=== PATIENT | male | born 1965 | race Caucasian/White ===

== ENCOUNTER 2020-03-24 22:17 | Emergency (ER) | payer SELFPAY ==
[~2020-03-24 22:17] MED LIST: Iopamidol-370 76% 500 ML 1 ML ONE
[2020-03-24] MEDS ORDERED: Boostrix 0.5 ML (Tdap) VIAL ONE (22:36)
[2020-03-24] MEDS ORDERED: Fentanyl 100 MCG/2 ML VIAL ONE (22:36)
[2020-03-24] MEDS ORDERED: Ondansetron PF 4 MG/2 ML Vial ONE (22:36)
[2020-03-24 22:45] LABS: #Eosinphils 0.2 thou/uL (0.0-0.7); #Lymphocytes 2.1 thou/uL (1.20-3.40); #Monocytes 0.4 thou/uL (0.11-0.59); #Neutrophils 1.8 thou/uL (1.40-6.50); %Lymphocytes 46.7 % (21.0-51.0); %Monocytes 8.6 % (0.0-10.0); %Neutrophils 39.8 % (42.0-75.0); Hemoglobin 13.8 g/dL (14.0-18.0); Mean Corpuscular HGB CONC 32.7 g/dL (32.0-36.0); Mean Corpuscular Hemoglobin 29.6 pg (27.0-31.0); Mean Corpuscular Volume 90.4 fL (78.0-98.0); Mean Platelet Volume 9.3 fL (7.4-10.4); Platelet Count 157 thou/uL (130-400); RBC Distribution Width 11.6 % (11.5-14.5); Red Blood Cell (RBC) Count 4.68 mill/uL (4.70-6.10); White Blood Cell (WBC) Count 4.5 thou/uL (4.8-10.8)
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
[2020-03-24] MEDS ORDERED: Bacitracin 1 PK ONE (23:05)
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
[2020-03-24 23:08] LABS: ALT (SGPT) 34 U/L (8-55); AST (SGOT) 32 U/L (5-34); Albumin 3.6 g/dL (3.5-5.0); Alkaline Phosphatase 75 U/L (40-110); Anion Gap 13 mmol/L (10-20); BUN (Urea Nitrogen) 15 mg/dL (8.4-25.7); Bilirubin, Total 0.4 mg/dL (0.2-1.2); Calc. Creatinine Clearance 0 mL/min (70-130); Carbon Dioxide 25 mmol/L (22-29); Chloride 104 mmol/L (98-107); Globulin 3.2 g/dL (2.4-3.5); Glucose 104 mg/dL (70-105); Lipase 41 U/L (8-78); Potassium 3.9 mmol/L (3.5-5.1); Protein, Total 6.8 g/dL (6.0-8.3); Sodium 138 mmol/L (136-145)
[2020-03-25] MEDS ORDERED: Bacitracin 1 PK ONE (00:42)
== END 2020-03-25 03:01 | disposition home or self-care (01) ==
LOC: ERS 22:17
DX: T21.22XA Burn of second degree of abdominal wall, initial encounter (principal); T22.212A Burn of second degree of left forearm, initial encounter; T23.202A Burn of second degree of left hand, unspecified site, initial encounter; T31.0 Burns involving less than 10% of body surface; D72.819 Decreased white blood cell count, unspecified; I10 Essential (primary) hypertension; F32.9 Major depressive disorder, single episode, unspecified; F17.210 Nicotine dependence, cigarettes, uncomplicated; X11.8XXA Contact with other hot tap-water, initial encounter
CPT/HCPCS: 16020; 36415; 74177; 80053; 83690; 85025; 90471; 90715; 96365; 96375; J0690; J2405; J3010; Q9967

== ENCOUNTER 2022-06-17 20:27 | Emergency (ER) | payer OTHER, SELFPAY ==
[2022-06-17] MEDS ORDERED: Boostrix 0.5 ML (Tdap) VIAL (>/=7 yrs of age) ONE (20:54)
[2022-06-17] MEDS ORDERED: Rabies Vaccine Human 2.5 UNITS VIAL ONE (21:27)
[2022-06-17] MEDS ORDERED: Bacitracin 1 PK ONE (22:23)
== END 2022-06-18 00:10 | disposition home or self-care (01) ==
LOC: ERS 20:27
DX: S61.259A Open bite of unspecified finger without damage to nail, initial encounter (principal); I10 Essential (primary) hypertension; F17.210 Nicotine dependence, cigarettes, uncomplicated; W54.0XXA Bitten by dog, initial encounter; Y93.89 Activity, other specified
CPT/HCPCS: 90375; 90471; 90472; 90675; 90715